=== PATIENT | female | born 1995 | race Caucasian/White ===

== ENCOUNTER 2018-11-30 21:29 | Emergency (ER) | payer MEDICAID ==
[~2018-11-30] VITALS: Ht 152.4 cm; Wt 54.0 kg
--- NOTE | 2018-11-30 21:51 | NUR ---
PT LOWER EXT DRESSED. TECH ASSISTING PT GET UNDRESSED AND SECURE THE ROOM.
--- NOTE | 2018-11-30 22:16 | NUR ---
PT IN HOSPITAL GOWN. PT TEARFUL AND RELUCTANT TO ANSWER ASSEESSMENT QUESTIONS, HOWEVER IS COOPERATIVE AT THIS TIME. PT BOYFRIEND/BABY FATHER AT BEDSIDE. PT BELONGINGS TAGGED, BAGGED AND LOCKED IN CLOTHING CLOSET. BILAT GARAGE DOORS DOWN. BREATHLYZER DONE - 0.330. PT WOUNDS CLEANED AND DRESSED. PT GIVEN URINE CUP FOR URINE COLLECTION. PT AWAITING ERP EVAL.
--- NOTE | 2018-11-30 22:22 | NUR ---
THOUROUGHLY EXPLAINED SI/LEGAL HOLD PROCESS TO PT. PT CONCERNED ABOUT POSSIBLY NEEDING TO BE ADMITTED TO PSYCH FACILITY AND IF CAN HAVE VISITORS IF ADMITTED. ANSWERED PT'S QUESTIONS. PT AWAITING ERP EVAL.
[2018-11-30] MEDS ORDERED: LIDOCAINE-MPF 1%, 2ML ONE (22:49)
[2018-11-30 22:55] LABS: BASOPHILS # (AUTO) 0.04 x10^3/uL (0-0.1); BASOPHILS % (AUTO) 1 % (0-1); EOSINOPHILS # (AUTO) 0.18 x10^3/uL (0-0.4); EOSINOPHILS % (AUTO) 3 % (1-7); LYMPHOCYTES # (AUTO) 3.19 x10^3/uL (1-3.4); LYMPHOCYTES % (AUTO) 45 % (22-44); MD NO; MEAN CORPUSCULAR HEMOGLOBIN 32.6 pg (27.0-34.8); MEAN CORPUSCULAR HGB CONC 34.7 g/dL (32.4-35.8); MEAN PLATELET VOLUME 7.4 fL (7.4-10.4); MONOCYTES # (AUTO) 0.49 x10^3/uL (0.2-0.8); MONOCYTES % (AUTO) 7 % (2-9); NEUTROPHILS # (AUTO) 3.22 x10^3/uL (1.8-6.8); NEUTROPHILS % (AUTO) 45 % (42-75); PLATELET COUNT 392 x10^3/uL (130-400); RED BLOOD COUNT 4.39 x10^6/uL (3.82-5.3)
[2018-11-30] MEDS ORDERED: LIDOCAINE-MPF 1%, 2ML INFIL ONE (23:00)
[2018-11-30 23:08] LABS: ALANINE AMINOTRANSFERASE 41 U/L (12-78); ALBUMIN 3.9 g/dL (3.4-5.0); ANION GAP 9 mmol/L (5-15); CALCIUM 8.1 mg/dL (8.5-10.1); CHLORIDE 110 mmol/L (98-107); CREATININE 0.67 mg/dL (0.55-1.02)
[2018-11-30 23:10] LABS: SALICYLATE LEVEL < 1.7 mg/dL (2.8-20.0)
[2018-11-30 23:11] LABS: ACETAMINOPHEN < 2 mcg/mL (10-30)
[2018-11-30 23:12] LABS: ALKALINE PHOSPHATASE 111 U/L (45-117); BILIRUBIN,TOTAL 0.3 mg/dL (0.2-1.0); TOTAL PROTEIN 7.4 g/dL (6.4-8.2)
--- NOTE | 2018-11-30 23:40 | NUR ---
PT WOUNDS IRRIGATED. ERP HAS SUPPLIES TO SUTURE. PT GIVEN WATER AND FOOD PER ERP OKAY. NO URINE YET. PT TRYING TO VOID. PT CALM, BOYFRIEND REMAINS AT BEDSIDE. PT GIVEN WARM BLANKETS.
--- NOTE | 2018-12-01 00:05 | NUR ---
PT RESTING IN BED, ROOM SECURED. NO NEEDS AT THIS TIME.
--- NOTE | 2018-12-01 01:40 | NUR ---
PT RESTING CALMLY IN [facility]. NAD AT THIS TIME. WILL CONTINUE TO MONITOR.
--- NOTE | 2018-12-01 01:50 | NUR ---
URINE SAMPLE PROVIDED AND WALKED TO LAB.
--- NOTE | 2018-12-01 02:00 | NUR ---
PT RESTING CALMLY IN GURNEY. PT GIVEN WARM BLANKETS, ROOM PICKED UP FROM SUTURE PROCEDURE. WILL CONTINUE TO MONITOR.
[2018-12-01 02:21] LABS: AMPHETAMINE SCREEN, URINE Negative (Negative); BARBITURATE SCREEN, URINE Negative (Negative); BENZODIAZEPINE SCREEN, URINE Negative (Negative); CANNABINOID SCREEN, URINE Negative (Negative); COCAINE SCREEN, URINE Positive (Negative); METHADONE SCREEN, URINE Negative (Negative); OPIATE SCREEN, URINE Negative (Negative)
--- NOTE | 2018-12-01 03:22 | NUR ---
PT RESTING CALMLY IN [facility]. RESP EVEN AND NON LABORED.
--- NOTE | 2018-12-01 04:12 | NUR ---
PT RESTING CALMLY IN BED. RESP EVEN AND NON LABORED.
--- NOTE | 2018-12-01 04:30 | NUR ---
PT HAS BEEN PLACED ON A LEGAL HOLD BY ERP. CHARGE AWARE SITTER NEEDED.
--- NOTE | 2018-12-01 05:31 | NUR ---
PT RESTING IN BED WITH EYES CLOSED. NO NEEDS AT THIS TIME. WILL CONTINUE TO MONITOR.
--- NOTE | 2018-12-01 06:23 | NUR ---
PT RESTING IN BED CALMLY. PT GIVEN WATER PER PT REQUEST.
--- NOTE | 2018-12-01 06:26 | NUR ---
BREAKFAST ORDERED FOR PT.
--- NOTE | 2018-12-01 07:01 | NUR ---
[facility], responds approp to staff, NAD, comfort measures provided, pt remains in safe environment, awaiting kimberleeter, TRANGF.
--- NOTE | 2018-12-01 07:35 | NUR ---
michelle arrived, in full view of pt.
--- NOTE | 2018-12-01 07:48 | NUR ---
ASSUMED CARE OF PATIENT. REPORT GIVEN FROM MUNIRA EWING. SITTER AT DOOR. NO ACUTE DISTRESS NOTED. WILL CONTINUE TO MONITOR.
--- NOTE | 2018-12-01 08:14 | NUR ---
PT GIVEN BREAKFAST. NO ACUTE DISTRESS NOTED. PT STATES, "I AM JUST TIRED." SITTER AT DOOR. WILL CONTINUE TO MONITOR.
--- NOTE | 2018-12-01 08:36 | NUR ---
resumed care of pt from [facility]. pt upright on [facility] awake & comfortable, responds approp to staff, NAD, comfort measures provided, call light within reach. Addendum: 12/01/18 at 0837 by COSME resumed care of pt from [facility]. pt back to sleep on [facility], NAD with equal chest rise/fall, no needs at this time, pt remains in safe environment, sitter in full view.
--- NOTE | 2018-12-01 09:02 | NUR ---
pt upright on gurney awake & comfortable, still eating breakfast, responds approp to staff, NAD, comfort measures provided, BF arrived at BS, pt remains in safe environment, sitter in full view.
--- NOTE | 2018-12-01 10:03 | NUR ---
pt remains upright on gurney awake & comfortable, responds approp to staff, NAD, comfort measures provided, BF at BS, pt remains in safe environment, sitter in full view.
--- NOTE | 2018-12-01 11:01 | NUR ---
pt calmly sleeping on gurney, cooperative & responds approp to staff, NAD, comfort measures provided, no visitors at BS, pt remains in safe environment, sitter in full view.
--- NOTE | 2018-12-01 12:04 | NUR ---
pt laying on gurney awake, calm & comfortable, watching TV, cooperative & responds approp to staff, NAD, comfort measures provided, pt remains in safe environment, sitter in full view.
--- NOTE | 2018-12-01 12:26 | NUR ---
lunch tray given
--- NOTE | 2018-12-01 13:01 | NUR ---
pt continues to lay on gurney awake, calm & comfortable, watching TV, cooperative & responds approp to staff, NAD, comfort measures provided, pt remains in safe environment, sitter in full view.
--- NOTE | 2018-12-01 13:10 | NUR ---
THROUGHPUT RN: PT NOW 0.046. [facility] CALLED FOR CONSULT.
--- NOTE | 2018-12-01 14:24 | NUR ---
THROUGHPUT RNl: SECOND CALL TO [facility].
--- NOTE | 2018-12-01 14:39 | NUR ---
THROUGHPUT RN: SPOKE W/ JE FROM [facility].
--- NOTE | 2018-12-01 14:45 | NUR ---
THROUGHPUT RN: SPOKE W/ JE FROM [facility] WHO STATES THEY WILL SEND BORA FROM [facility] TO COME ASSESS PT.
--- NOTE | 2018-12-01 15:52 | NUR ---
THROUGHPUT RN: BORA FROM [facility] AT BEDSIDE.
--- NOTE | 2018-12-01 16:10 | NUR ---
[facility] at BS
--- NOTE | 2018-12-01 17:41 | NUR ---
THROUGHPUT RN: PACKET FAXED TO [facility], [facility], AND [facility].
--- NOTE | 2018-12-01 18:01 | NUR ---
pt laying on gurney awake, calm & comfortable, watching TV, cooperative & responds approp to staff, NAD, comfort measures provided, BF at BS, pt remains in safe environment, sitter in full view.
--- NOTE | 2018-12-01 18:55 | NUR ---
REPORT FROM KAYLIN LOMBARDO. PT RESTING. SITTER IN VIEW OF PT. PT HAS NO NEEDS AT THIS TIME.
--- NOTE | 2018-12-01 18:55 | NUR ---
report given to Rani
--- NOTE | 2018-12-01 19:08 | NUR ---
REPORT GIVEN TO DESMOND Cardoso) Addendum: 12/01/18 at 1914 by RACHEL [facility]
--- NOTE | 2018-12-01 19:25 | NUR ---
SPOKE WITH CARLTON AT [facility]
--- NOTE | 2018-12-01 20:30 | NUR ---
PT GIVEN JUICE AND WATER. PT HAS NO OTHER NEEDS. SITTER IN VIEW OF PT.
[2018-12-01 21:00] VITALS: BP 113/74
--- NOTE | 2018-12-01 21:58 | NUR ---
PT RESTING WITH NO NEEDS AT THIS TIME. PT WAITING TO BE TRANSFERRED TO [facility]. SITTER IN VIEW OF PT
--- NOTE | 2018-12-01 22:25 | NUR ---
REPORT TO LINDEN. PT LEFT WITH LINDEN
[2018-12-31] MEDS ORDERED: MIRT15TA94 PO (14:08)
== END 2018-12-01 22:28 ==
LOC: ED 22:37 → EDIP 12-01 17:42 → UNDOADMOB 12-01 17:42 → ED 12-01 22:28
DX: S91.311A Laceration without foreign body, right foot, initial encounter (principal); S71.112A Laceration without foreign body, left thigh, initial encounter; F32.9 Major depressive disorder, single episode, unspecified; F10.120 Alcohol abuse with intoxication, uncomplicated; F14.10 Cocaine abuse, uncomplicated; X78.8XXA Intentional self-harm by other sharp object, initial encounter; Y93.89 Activity, other specified; Y92.89 Other specified places as the place of occurrence of the external cause; Y99.8 Other external cause status
CPT/HCPCS: 12031; 12032; 12041; 12042; 36415; 80053; 80307; 80329; 84443; 84703; 85025; 99285; G0480

== ENCOUNTER 2018-12-31 14:01 | Emergency (ER) | payer MEDICAID ==
[~2018-12-31] VITALS: Ht 157.5 cm; Wt 57.0 kg
[2018-12-31] MEDS ORDERED: MIRT15TA6 PO (14:08)
--- NOTE | 2018-12-31 14:26 | NUR ---
PT BIB [facility] FOR SA BY TAKING PRESCRIBED MIRTAZAPINE OF POSSIBLY 15 TAB. PT WITHDRAWN AND UNCOOPERATIVE DURING ASSESSMENT WITH OCCASION AGITATED OUTBURSTS WHILE FRIEND DESCRIBED WHAT HAPPENED. PER FRIEND RECENT SA BY CUTTING WITH 5 DAY ADMISSION. PT INTERMITTENTLY SLEEPING WITH AROUSAL TO TOUCH. PT ON 5 LEAD, B/P AND SPO2 MONITORS, ROOM SECURED ALLOWED WITH CONT. MONITORING
[2018-12-31 14:30] LABS: BASOPHILS # (AUTO) 0.06 x10^3/uL (0-0.1); BASOPHILS % (AUTO) 1 % (0-1); EOSINOPHILS # (AUTO) 0.07 x10^3/uL (0-0.4); EOSINOPHILS % (AUTO) 1 % (1-7); LYMPHOCYTES # (AUTO) 3.08 x10^3/uL (1-3.4); LYMPHOCYTES % (AUTO) 53 % (22-44); MD NO; MEAN CORPUSCULAR HEMOGLOBIN 31.7 pg (27.0-34.8); MEAN CORPUSCULAR HGB CONC 33.8 g/dL (32.4-35.8); MEAN CORPUSCULAR VOLUME 93.9 fL (80-100); MEAN PLATELET VOLUME 7.1 fL (7.4-10.4); MONOCYTES # (AUTO) 0.35 x10^3/uL (0.2-0.8); MONOCYTES % (AUTO) 6 % (2-9); NEUTROPHILS # (AUTO) 2.26 x10^3/uL (1.8-6.8); NEUTROPHILS % (AUTO) 39 % (42-75); PLATELET COUNT 377 x10^3/uL (130-400); RED CELL DISTRIBUTION WIDTH 13.3 % (9.6-15.2)
[2018-12-31 14:42] LABS: ALANINE AMINOTRANSFERASE 38 U/L (12-78); ANION GAP 8 mmol/L (5-15); CALCIUM 7.9 mg/dL (8.5-10.1); CHLORIDE 112 mmol/L (98-107); CREATININE 0.72 mg/dL (0.55-1.02)
[2018-12-31 14:44] LABS: SALICYLATE LEVEL < 1.7 mg/dL (2.8-20.0)
[2018-12-31 14:54] LABS: ALKALINE PHOSPHATASE 98 U/L (45-117); BILIRUBIN,TOTAL 0.4 mg/dL (0.2-1.0); TOTAL PROTEIN 7.8 g/dL (6.4-8.2)
[2018-12-31 14:59] LABS: ACETAMINOPHEN < 2 mcg/mL (10-30)
--- NOTE | 2018-12-31 16:33 | NUR ---
PT RESTING COMFORTABLY IN GURNEY, AROUSES TO TOUCH, DENIES ABILITY TO PRODUCE UA AT THIS TIME. DENIES ANY NEEDS AT THIS TIME
--- NOTE | 2018-12-31 16:58 | NUR ---
WILL (FRIEND) CONTACT INFO [phone]
--- NOTE | 2018-12-31 16:59 | NUR ---
SITTER MONITORING FROM [facility]
--- NOTE | 2018-12-31 17:48 | NUR ---
PT ASSISTED TO BATHROOM, REFUSES TO GIVE UA AT THIS TIME, BM, ASSISTED BACK TO BED AND TOLERATED WELL. DISCUSSED POC WITH PT. PT NEEDS POC REINFORCEMENT
--- NOTE | 2018-12-31 18:59 | NUR ---
LUIS ALBERTO (MOTHER) [phone]
--- NOTE | 2018-12-31 19:02 | NUR ---
Note gilson in EDM - 12/31/18 at 1903 by ELIZABETH PT BEDSIDE REPORT FROM ERIKA LOMBARDO. THIS RN TO ASSUME CARE OF PT. PT IN SHOWER AT THIS TIME W/ TECH AT DOOR.
--- NOTE | 2018-12-31 19:04 | NUR ---
PT BEDSIDE REPORT FROM ERIKA LOMBARDO. THIS RN TO ASSUME CARE OF PT. ALL MONITORING IN PLACE ON PT. VSS. ROLLER DOORS IN PLACE. SITTER IN HALLWAY. MOTHER AT BEDSIDE.
[2018-12-31 20:07] VITALS: BP 102/64
--- NOTE | 2018-12-31 20:07 | NUR ---
ARC WELDER APPRENTICE AT BEDSIDE. VSS. ROLLER DOORS IN PLACE. ALL MONITORING STILL IN PLACE.
--- NOTE | 2018-12-31 21:34 | NUR ---
PT BOYFRIEND FOUND IN BED. REMINDED ONLY PT ALLOWED IN BED. PT BREATHALYZED AND 0.193 NOTED. MD AWARE. AWAITING BELOW LEGAL LIMIT FOR PSYCH FACILITY PLACEMENT.
[2019-01-01 00:48] LABS: AMPHETAMINE SCREEN, URINE Negative (Negative); BARBITURATE SCREEN, URINE Negative (Negative); BENZODIAZEPINE SCREEN, URINE Negative (Negative); CANNABINOID SCREEN, URINE Negative (Negative); COCAINE SCREEN, URINE Positive (Negative)
[2019-01-01 00:50] LABS: METHADONE SCREEN, URINE Negative (Negative); OPIATE SCREEN, URINE Negative (Negative)
[2019-01-01] MEDS ORDERED: BISACODYL 10 MG SUPP PR PRN (01:00)
[2019-01-01] MEDS ORDERED: ONDANSETRON ODT 4 MG PO PRN (01:00)
[2019-01-01] MEDS ORDERED: POLYETHYLENE GLYCOL 17 GM PACKET PO PRN (01:00)
--- NOTE | 2019-01-01 01:02 | NUR ---
PT SLEEPING COMFORTABLY ON [place]. RR EVEN AND UNLABORED. NADN. ROLLER DOORS IN PLACE. SITTER IN HALLWAY.
--- NOTE | 2019-01-01 01:02 | NUR ---
REFERRAL FAXED TO [facility], [facility], [facility], AND [facility]
--- NOTE | 2019-01-01 01:40 | NUR ---
[facility] CALLED AND STATES PT WILL "PROBABLY BE ADMITED SOON."
--- NOTE | 2019-01-01 01:53 | NUR ---
PT REPORT GIVEN TO ADMITTING RN AT [facility]. AWAITING [facility] TRANSPORT.
[2019-01-01] MEDS ORDERED: SENNA/DOCUSATE TABLET PO SCH (09:00)
== END 2019-01-01 02:43 ==
LOC: ED 15:06 → EDIP 01-01 00:33 → UNDOADMOB 01-01 00:33 → ED 01-01 02:43
DX: T43.022A Poisoning by tetracyclic antidepressants, intentional self-harm, initial encounter (principal); Y92.89 Other specified places as the place of occurrence of the external cause; F32.9 Major depressive disorder, single episode, unspecified
CPT/HCPCS: 36415; 80053; 80307; 80329; 84703; 85025; 99285; G0480

== ENCOUNTER 2019-06-13 19:39 | Emergency (ER) | payer MEDICAID ==
[~2019-06-13] VITALS: Ht 160 cm; Wt 57.0 kg
[2019-06-13 19:43] VITALS: BP 128/88
== END 2019-06-13 21:19 | disposition home or self-care (01) ==
LOC: ED 21:13
DX: F41.1 Generalized anxiety disorder (principal); R11.0 Nausea
CPT/HCPCS: 99284; Q0162

== ENCOUNTER 2019-09-22 23:05 | Emergency (ER) | payer MEDICAID ==
[~2019-09-22] VITALS: Ht 157.5 cm; Wt 54.4 kg
[~2019-09-22 23:05] MED LIST: MIRT15TA94 PO
[2019-09-22 23:16] VITALS: BP 131/98
[2019-09-22] MEDS ORDERED: IBUPROFEN 600 MG TABLET ONE (23:43)
[2019-09-22] MEDS ORDERED: ACETAMINOPHEN 500 MG TABLET ONE (23:43)
[2019-09-22 23:53] LABS: BASOPHILS # (AUTO) 0.07 x10^3/uL (0-0.1); BASOPHILS % (AUTO) 1 % (0-1); EOSINOPHILS # (AUTO) 0.16 x10^3/uL (0-0.4); EOSINOPHILS % (AUTO) 3 % (1-7); LYMPHOCYTES # (AUTO) 2.83 x10^3/uL (1-3.4); LYMPHOCYTES % (AUTO) 50 % (22-44); MD NO; MEAN CORPUSCULAR HEMOGLOBIN 31.5 pg (27.0-34.8); MEAN CORPUSCULAR HGB CONC 33.7 g/dL (32.4-35.8); MEAN CORPUSCULAR VOLUME 93.7 fL (80-100); MONOCYTES # (AUTO) 0.24 x10^3/uL (0.2-0.8); MONOCYTES % (AUTO) 4 % (2-9); NEUTROPHILS # (AUTO) 2.37 x10^3/uL (1.8-6.8); NEUTROPHILS % (AUTO) 42 % (42-75); PLATELET COUNT 487 x10^3/uL (130-400); RED BLOOD COUNT 4.89 x10^6/uL (3.82-5.3); RED CELL DISTRIBUTION WIDTH 13.5 % (9.6-15.2)
[2019-09-23] MEDS ORDERED: ACETAMINOPHEN 500 MG TABLET PO ONE
[2019-09-23] MEDS ORDERED: IBUPROFEN 600 MG TABLET PO ONE
[2019-09-23 00:02] LABS: ALBUMIN 3.9 g/dL (3.4-5.0); ANION GAP 9 mmol/L (5-15); CALCIUM 8.3 mg/dL (8.5-10.1); CHLORIDE 110 mmol/L (98-107); CREATININE 0.77 mg/dL (0.55-1.02)
--- NOTE | 2019-09-23 00:33 | NUR ---
BREAK RN: PT AND BOYFRIEND LAYING DOWN IN [facility]. NO STATED NEEDS AT THIS TIME.
== END 2019-09-23 00:43 | disposition left against medical advice (07) ==
LOC: ED 23:57
DX: F10.120 Alcohol abuse with intoxication, uncomplicated (principal); R25.2 Cramp and spasm; R51 Headache; F32.9 Major depressive disorder, single episode, unspecified; F17.200 Nicotine dependence, unspecified, uncomplicated; Y90.8 Blood alcohol level of 240 mg/100 ml or more
CPT/HCPCS: 36415; 80048; 80307; 82040; 85025; 99283

== ENCOUNTER 2019-11-18 09:59 | Emergency (ER) | payer MEDICAID ==
[~2019-11-18] VITALS: Ht 157.5 cm; Wt 57.1 kg
--- NOTE | 2019-11-18 10:09 | NUR ---
PT CAME IN CO OF CRAMPING AND HAVING MINOR VAGINAL BLEEDING. "SPOTTING". LMP Oct. HX OF 1 MISCARRIAGE. ZACKARY OSPINA, IS BEDSIDE. BLANKET PROVIDED.
[2019-11-18 10:35] LABS: MICROSCOPIC AUTO
[2019-11-18 10:36] LABS: CULTURE INDICATED? YES
[2019-11-18 10:41] LABS: BASOPHILS # (AUTO) 0.04 x10^3/uL (0-0.1); BASOPHILS % (AUTO) 0 % (0-1); EOSINOPHILS % (AUTO) 0 % (1-7); LYMPHOCYTES # (AUTO) 1.83 x10^3/uL (1-3.4); LYMPHOCYTES % (AUTO) 16 % (22-44); MD NO; MEAN CORPUSCULAR HEMOGLOBIN 31.1 pg (27.0-34.8); MEAN CORPUSCULAR HGB CONC 33.4 g/dL (32.4-35.8); MEAN CORPUSCULAR VOLUME 93.1 fL (80-100); MEAN PLATELET VOLUME 7.3 fL (7.4-10.4); MONOCYTES # (AUTO) 0.39 x10^3/uL (0.2-0.8); MONOCYTES % (AUTO) 4 % (2-9); NEUTROPHILS # (AUTO) 9.15 x10^3/uL (1.8-6.8); NEUTROPHILS % (AUTO) 80 % (42-75); PLATELET COUNT 374 x10^3/uL (130-400); RED BLOOD COUNT 4.88 x10^6/uL (3.82-5.3); RED CELL DISTRIBUTION WIDTH 14.5 % (9.6-15.2)
[2019-11-18 10:53] LABS: ALBUMIN 4.1 g/dL (3.4-5.0); ANION GAP 6 mmol/L (5-15); CALCIUM 8.3 mg/dL (8.5-10.1); CHLORIDE 113 mmol/L (98-107); CREATININE 0.62 mg/dL (0.55-1.02)
[2019-11-18 11:02] VITALS: BP 113/81
--- NOTE | 2019-11-18 11:06 | NUR ---
PT RESTING IN HOSPITAL BED. WATCHING TV. WI FI PASSWORD PROVIDED
== END 2019-11-18 12:27 | disposition home or self-care (01) ==
LOC: ED 10:22
DX: O26.891 Other specified pregnancy related conditions, first trimester (principal); R10.2 Pelvic and perineal pain; N93.9 Abnormal uterine and vaginal bleeding, unspecified; F17.200 Nicotine dependence, unspecified, uncomplicated; Z3A.01 Less than 8 weeks gestation of pregnancy
CPT/HCPCS: 36415; 76801; 80048; 81001; 82040; 84702; 85025; 86901; 87086; 99284

== ENCOUNTER 2019-11-21 09:31 | Emergency (ER) | payer MEDICAID ==
[~2019-11-21] VITALS: Ht 157.5 cm; Wt 57.1 kg
--- NOTE | 2019-11-21 10:14 | NUR ---
Pt resting on gurney connected to NIBP cuff and continous pulse ox monitor. Pt LMP 10/08/2019. Pt has had one miscarriage and two live full term births. Pt reports taking a test "last Wednesday" and has had some spotting and bleeding. Pt reports recently finding out her partner tested positive for gonnorrhea. Pt reports chills, vaginal discharge, and vaginal bleeding. Pt c/o back pain. NADN. No needs expressed at this time. Call light within reach.
--- NOTE | 2019-11-21 11:01 | NUR ---
PT BACK FROM US.
--- NOTE | 2019-11-21 11:19 | NUR ---
AT BEDSIDE EXPLAINING POC. [employer] STUDENT TO DO PELVIC EXAM.
[2019-11-21 11:54] LABS: CLUE CELLS PRESENT (NONE SEEN); WET PREP WBCS MODERATE (FEW)
[2019-11-21] MEDS ORDERED: CEFTRIAXONE 250 MG ONE (12:00)
[2019-11-21] MEDS ORDERED: AZITHROMYCIN 500 MG TABLET ONE (12:00)
[2019-11-21] MEDS ORDERED: LIDOCAINE-MPF 1%, 2ML ONE (12:00)
[2019-11-21] MEDS ORDERED: AZITHROMYCIN 500 MG TABLET PO ONE (12:00)
[2019-11-21] MEDS ORDERED: CEFTRIAXONE 1,000 MG IM ONE (12:00)
[2019-11-21] MEDS ORDERED: metroNIDAZOLE 500 MG TABLET ONE (12:13)
--- NOTE | 2019-11-21 12:16 | NUR ---
PT MEDICATED PER EMAR.
[2019-11-21 12:17] VITALS: BP 126/89
[2019-11-21] MEDS ORDERED: metroNIDAZOLE 500 MG TABLET PO ONE (12:30)
== END 2019-11-21 12:47 | disposition home or self-care (01) ==
LOC: ED 11:08
DX: O23.591 Infection of other part of genital tract in pregnancy, first trimester (principal); O98.211 Gonorrhea complicating pregnancy, first trimester; R10.2 Pelvic and perineal pain; Z3A.01 Less than 8 weeks gestation of pregnancy
CPT/HCPCS: 36415; 76801; 84702; 87210; 87491; 87591; 87808; 96372; 99284; J0696

== ENCOUNTER 2019-12-07 19:43 | Emergency (ER) | payer MEDICAID ==
[~2019-12-07] VITALS: Ht 157.5 cm; Wt 56.5 kg
--- NOTE | 2019-12-07 20:03 | NUR ---
PLACED VITALS SIGNS MONITORS. SOLUTIONS CONSULTANT STUDENT AT BEDSIDE.
--- NOTE | 2019-12-07 20:14 | NUR ---
urine collected and sent to lab at this time.
[2019-12-07] MEDS ORDERED: KETOROLAC 30 MG/1 ML ONE (20:15)
[2019-12-07] MEDS ORDERED: ONDANSETRON ODT 4 MG ONE (20:16)
[2019-12-07 20:21] LABS: CULTURE INDICATED? YES; MICROSCOPIC INDICATED
--- NOTE | 2019-12-07 20:21 | NUR ---
MEDICATED PER CYNTHIA. FITNESS COACH AT BEDSIDE FOR BLOOD DRAW.
[2019-12-07] MEDS ORDERED: ONDANSETRON ODT 4 MG PO ONE (20:30)
[2019-12-07] MEDS ORDERED: KETOROLAC 30 MG/1 ML IM ONE (20:30)
[2019-12-07 20:33] LABS: BASOPHILS # (AUTO) 0.02 x10^3/uL (0-0.1); BASOPHILS % (AUTO) 0 % (0-1); EOSINOPHILS # (AUTO) 0.12 x10^3/uL (0-0.4); EOSINOPHILS % (AUTO) 1 % (1-7); LYMPHOCYTES # (AUTO) 1.44 x10^3/uL (1-3.4); LYMPHOCYTES % (AUTO) 14 % (22-44); MD NO; MEAN CORPUSCULAR HEMOGLOBIN 31.3 pg (27.0-34.8); MEAN CORPUSCULAR HGB CONC 33.6 g/dL (32.4-35.8); MEAN PLATELET VOLUME 7.3 fL (7.4-10.4); MONOCYTES # (AUTO) 1.01 x10^3/uL (0.2-0.8); MONOCYTES % (AUTO) 10 % (2-9); NEUTROPHILS # (AUTO) 7.51 x10^3/uL (1.8-6.8); NEUTROPHILS % (AUTO) 74 % (42-75); PLATELET COUNT 361 x10^3/uL (130-400); RED BLOOD COUNT 4.21 x10^6/uL (3.82-5.3); RED CELL DISTRIBUTION WIDTH 14.1 % (9.6-15.2)
[2019-12-07] MEDS ORDERED: TRAZ50TA66 PO (20:35)
[2019-12-07 20:43] LABS: ANION GAP 6 mmol/L (5-15); CHLORIDE 109 mmol/L (98-107); CREATININE 0.71 mg/dL (0.55-1.02)
[2019-12-07 20:44] LABS: ALBUMIN 3.4 g/dL (3.4-5.0)
[2019-12-07] MEDS ORDERED: CEFDINIR 300 MG CAPSULE ONE (20:52)
--- NOTE | 2019-12-07 20:55 | NUR ---
PT MEDICATED PER MAR AT THIS TIME.
[2019-12-07] MEDS ORDERED: CEFDINIR 300 MG CAPSULE PO ONE (21:00)
--- NOTE | 2019-12-07 21:36 | NUR ---
pt d/c with d/c summary and scripts. all questions answered. pt ambulated to registration desk with steady gait for d/c home. pt denies any other needs pertaining to this visit.
[2019-12-07 21:37] VITALS: BP 90/59
== END 2019-12-07 21:40 | disposition home or self-care (01) ==
LOC: ED 21:27
DX: N39.0 Urinary tract infection, site not specified (principal); R30.0 Dysuria; Z87.891 Personal history of nicotine dependence
CPT/HCPCS: 36415; 80048; 81001; 82040; 85025; 87086; 96372; 99283; J1885; Q0162